=== PATIENT | male | born 2000 | race Caucasian/White ===

== ENCOUNTER 2020-12-21 16:36 | Emergency (ER) | payer OTHER ==
[2020-12-21 16:50] VITALS: BP 130/80; PULSE 105; RESP 18; TEMP 99.4
--- NOTE | 2020-12-21 17:20 | ED ---
General Adult HPI - General Chief complaint: [place]/Exposure Stated complaint: [facility]-blood exposure Time Seen by Provider: 12/21/20 17:00 Source: patient, RN notes reviewed Mode of arrival: ambulatory Limitations: no limitations - History of Present Illness Initial comments: Patient is a 20-year-old male who presents the emergency department after being exposed to dry blood on a prepaid foam package while working at [employer]. He notes that somebody try to superglue phone cut themselves, but on the package. He notes that he went to put it away later when he noticed dry blood on the package that he had come in to contact with. Patient denied any cuts and lacerations or open sores and either of his hands. He noted that he does have some dry skin. He noted that he decided come in as he was worried and just wanted to be safe. He denied any chest pain shortness breath headache nausea vomiting diarrhea constipation fever fatigue chills needle stick open wounds laceration area - Related Data Allergies Allergy/AdvReac Type Severity Reaction Status Date / Time Penicillins AdvReac Rash/Hives Verified 12/21/20 16:50 Review of Systems ROS Statement: Those systems with pertinent positive or pertinent negative responses have been documented in the HPI. ROS Other: All systems not noted in ROS Statement are negative. Past Medical History Past Medical History: No Reported History History of Any Multi-Drug Resistant Organisms: None Reported Past Surgical History: No Surgical Hx Reported Past Psychological History: No Psychological Hx Reported Smoking Status: Never smoker Past Alcohol Use History: None Reported Past Drug Use History: None Reported General Exam Limitations: no limitations General appearance: alert, in no apparent distress Head exam: Present: atraumatic, normocephalic, normal inspection Eye exam: Present: normal appearance, PERRL, EOMI. Absent: scleral icterus, conjunctival injection, periorbital swelling Neck exam: Present: normal inspection. Absent: tenderness, meningismus, lymphadenopathy Respiratory exam: Present: normal lung sounds bilaterally. Absent: respiratory distress, wheezes, rales, rhonchi, stridor Cardiovascular Exam: Present: regular rate, normal rhythm, normal heart sounds. Absent: systolic murmur, diastolic murmur, rubs, gallop, clicks GI/Abdominal exam: Present: soft, normal bowel sounds. Absent: distended, tenderness, guarding, rebound, rigid Extremities exam: Present: normal inspection, full ROM, normal capillary refill. Absent: tenderness, pedal edema, joint swelling, calf tenderness Neurological exam: Present: alert, oriented X3, CN II-XII intact Psychiatric exam: Present: normal affect, normal mood Skin exam: Present: warm, dry, intact, normal color. Absent: rash Course Vital Signs 12/21/20 16:48 Temperature 99.4 F Pulse Rate 105 H Respiratory 18 Rate Blood Pressure 130/80 O2 Sat by Pulse 99 Oximetry Medical Decision Making - Medical Decision Making 20-year-old male with exposure to got blood on a package at work. Examination was within normal limits patient had no open wounds or sores or skin on his bilateral hands. After discussing with Dr. Balbuena no labs were needed or ordered at this time as patient had no puncture wounds, open sores. Patient can discharge in stable condition. Disposition Clinical Impression: Exposure to blood Disposition: HOME SELF-CARE Condition: Stable Instructions (If sedation given, give patient instructions): Postexposure Prophylaxis (ED) Additional Instructions: Please return to the Emergency Department if symptoms worsen or any other concerns. Follow-up with primary care as needed. No lab work was needed as there was no open areas on the hands and the blood was dried. Continue to keep hands clean by washing them regularly. Is patient prescribed a controlled substance at d/c from ED?: No Referrals: None,Stated [Primary Care Provider] - 1-2 days Time of Disposition: 17:19
== END 2020-12-21 17:20 | disposition home or self-care (01) ==
LOC: EC 16:36
DX: Z77.21 Contact with and (suspected) exposure to potentially hazardous body fluids (principal)
CPT/HCPCS: 99282